=== PATIENT | female | born 1985 | race Caucasian/White ===

== ENCOUNTER 2018-06-27 07:08 | Day surgery (SDC) | payer MEDICAID, OTHER ==
[2018-06-26 16:46] VITALS: BMI 43.5
[~2018-06-27] VITALS: Ht 160 cm; Wt 114.2 kg
[2018-06-27] VITALS (15 sets, daily range): BP systolic 109–137; BP diastolic 56–77; PULSE 54–72; RESP 14–20; Ht 160 cm; Wt 114.2 kg
[2018-06-27] MEDS ORDERED: BUPIVACAINE 0.25% (MPF) 30 ML INJ ONE (09:13)
--- NOTE | 2018-06-27 09:29 | PREAC ---
Date/Time of Note Date/Time of Note DATE: 06/27/18 TIME: 09:28 Anesthesia Eval and Record Evaluation Time Pre-Procedure Interview DATE: 06/27/18 TIME: 09:28 Age 33 Sex female NPO: 8 hrs Preoperative diagnosis Cholelithiasis Planned procedure Lap Cholecystectomy Past Medical History Past Medical History: Includes GI: Morbid obesity Surgery & Anesthesia Issues No known issue Meds Anticoagulation: No Beta Hollie within 24 hr: No Reason Beta Hollie not given: Pt. not on B-Hollie No Active Prescriptions or Reported Meds Meds reviewed: Yes Allergies Coded Allergies: No Known Drug Allergies (Verified Allergy, Unknown, 06/27/18) Allergies Reviewed: Yes Labs/Studies Labs Reviewed: Reviewed by anesthesiologist test: Negative Pre-procedure Exam Last vitals Vital Signs Date Temp Pulse Resp B/P (MAP) Pulse Ox O2 O2 Flow FiO2 Time Delivery Rate 06/27/18 96.7 68 16 114/64 99 Room Air 08:12 (81) Airway: Adequate mouth opening, Adequate thyromental dist Mallampati: Mallampati II Teeth: Normal Lung: Normal Heart: Normal ASA Physical Status ASA physical status: 2 Emergency: None Planned Anesthetic General/MAC: ETT Planned Pain Management Parenteral pain med, Local by surgeon Pre-operative Attestations Prior to commencing anesthesia and surgery, the patient was re-evaluated, there was verification of: *The patient's identity *The results of appropriate recent lab work and preoperative vital signs *The above evaluation not changing prior to induction *Anesthetic plan, risk benefits, alternative and complications discussed with patient/family; questions answered; patient/family understands, accepts and wishes to proceed. NINA HUSAIN MD Jun 27, 2018 09:29
[2018-06-27] MEDS ORDERED: MIDAZOLAM 1 MG/ML 2 ML INJ ONE (09:32)
[2018-06-27] MEDS ORDERED: ROCURONIUM 50 MG INJ ONE (10:16)
[2018-06-27] MEDS ORDERED: GLYCOPYRROLATE 0.4 MG INJ ONE (10:16)
[2018-06-27] MEDS ORDERED: PROPOFOL 20 ML ONE (10:16)
[2018-06-27] MEDS ORDERED: NEOSTIGMINE 3 MG/3 ML SYRINGE ONE (10:16)
[2018-06-27] MEDS ORDERED: LIDOCAINE 2% (SDV) 5 ML INJ ONE (10:16)
[2018-06-27] MEDS ORDERED: CEFAZOLIN 1 GM INJ ONE (10:16)
[2018-06-27] MEDS ORDERED: ONDANSETRON 4 MG INJ ONE ×2 (10:17→10:31)
--- NOTE | 2018-06-27 10:24 | OPR ---
Date/Time of Note Date/Time of Note DATE: 06/27/18 TIME: 10:22 Operative Report Procedure Date: Jun 27, 2018 Preoperative Diagnosis symptomatic gallstones Postoperative Diagnosis same Operation/Procedure Performed laparoscopic cholecystectomy Surgeon see signature line Licensed Surveyor none Anesthesia Type: general Estimated Blood Loss: 0 - 10 ml's Transfusion none Specimen gallbladder Grafts/Implants none Complications none Pt Condition Post Procedure: stable Indications This is a 33-year-old female with some tender gallstones. She reports surgical excision of her gallbladder. Risks alternatives benefits and percent were discussed the patient. In particular she has slightly increased risk of infection bleeding and intra-abdominal organ injury, bladder injury due to her morbid obesity of BMI of 44.6. Careful discussion was made and all questions were answered. She expressed understanding and consents to the operation. Procedure Description Patient is taken to the OR and prepped and draped in usual sterile fashion. Samantha gical time was performed. IV antibiotics given. Infraumbilical transverse incision was made at the 15 blade. Dissection with cautery was carried down to the fascia. The fascia was grasped with Jana's and divided with curved Weinstein scissors. 0 Vicryl U stitch was placed into the fascia. Mcclain trocar was introduced. Pneumoperitoneum is established. Midepigastric 12 mm optical trochars placed under direct position. Right upper quadrant upper flank 5 mm optical trocar was placed under direct visualization. Upon initial inspection there are some adhesions to the gallbladder. This was taken down bluntly with graspers and [place] graspers. The gallbladder is retracted by the fundus in a lateral and cephalad direction. [place] graspers were used to dissect out and isolate the cystic duct and cystic artery. The critical view is established. The cystic duct is divided with 3 clips proximally clipped distal and the division was performed laparoscopic scissors. Cystic artery was divided in a similar fashion with 3 clips proximal to distal and the division was performed laparoscopic scissors. The gallbladder was taken of the gallbladder bed. Good hemostasis established. Minimal suction irrigation is used. The gallbladder is retrieved using Endo Catch bag. Ports removed under direct position. 0 Vicryl U stitch was tied down. Skin is closed using skin carlos eduardo. Therapeutic brown bcutaneous local anesthesia was injected at the incision site. Dry dressings were applied. Phil LEAL Jun 27, 2018 10:24
[2018-06-27] MEDS ORDERED: LABETALOL HCL 20MG INJ IV PRN (10:30)
[2018-06-27] MEDS ORDERED: hydrALAzine 20 MG INJ IV PRN (10:30)
[2018-06-27] MEDS ORDERED: ONDANSETRON 4 MG INJ IV PRN (10:30)
[2018-06-27] MEDS ORDERED: DIPHENHYDRAMINE 50 MG INJ IV PRN (10:30)
[2018-06-27] MEDS ORDERED: METOCLOPRAMIDE 10 MG INJ IV PRN (10:30)
[2018-06-27] MEDS ORDERED: HYDROCODONE/APAP (5/325) TAB PO ONE (10:30)
[2018-06-27] MEDS ORDERED: KETOROLAC 30 MG INJ IV PRN (10:30)
[2018-06-27] MEDS ORDERED: HYDROmorphONE 1 MG/5 ML IV SYRINGE IV PRN ×2 (10:30)
[2018-06-27] MEDS ORDERED: MEPERIDINE 25 MG INJ IV PRN (10:30)
--- NOTE | 2018-06-27 10:30 | PAC ---
Date/Time of Note Date/Time of Note DATE: 06/27/18 TIME: 10:28 Post-Anesthesia Notes Post-Anesthesia Note Last documented vital signs Vital Signs Date Temp Pulse Resp B/P (MAP) Pulse Ox O2 O2 Flow FiO2 Time Delivery Rate 06/27/18 98.1 10:27 06/27/18 68 16 114/64 99 Room Air 08:12 (81) Activity: WNL Respiratory function: WNL Cardiovascular function: WNL Mental status: Baseline Pain reasonably controlled: Yes Hydration appropriate: Yes Nausea/Vomiting absent: Yes Comments BP:145/68, pulse:78, spo2:100%, T:98,8 NINA HUSAIN MD Jun 27, 2018 10:30
[2018-06-27] MEDS: FENTAnyl 50 MCG/ML VIAL IV PRN ×2 (10:54→11:05)
== END 2018-06-27 12:04 | disposition home or self-care (01) ==
LOC: SDS 07:08
PROVIDERS: ATTEND Surgery
DX: K80.20 Calculus of gallbladder without cholecystitis without obstruction (principal)
CPT/HCPCS: 47562; J0690; J1170; J1200; J1885; J2250; J2405; J2710; J2765; J3010; Z7610; 88304

== ENCOUNTER 2018-09-23 09:22 | Emergency (ER) | payer OTHER ==
[~2018-09-23] VITALS: Ht 165.1 cm; Wt 94.0 kg
[2018-09-23 09:25] VITALS: BP 147/78; PULSE 73; RESP 18; Ht 165.1 cm; Wt 94.0 kg
[2018-09-23] MEDS ORDERED: BENZ-6 PO (09:53)
[2018-09-23] MEDS ORDERED: NAPR-985 PO (09:53)
[2018-09-23] MEDS ORDERED: PSEU-79 PO (09:53)
[2018-09-23] MEDS ORDERED: PROM6.2515 PO (09:53)
--- NOTE | 2018-09-23 10:38 | ERD ---
ER Documentation Chief Complaint Chief Complaint pt bib self with c/o aches and pains, fever for a few days HPI 33-year-old female presenting with body aches sore throat ear pain and tactile fevers for the last few days. She has not taken medications today. She has a dry cough. Denies other medical problems. NKDA. Surgical history and D&C with cholecystectomy. Social history denies ROS All systems reviewed and are negative except as per history of present illness. Medications Home Meds Active Scripts Promethazine Hcl* (Promethazine Hcl* Syrup) 6.25 Mg/5 Ml Syrup, 6.25 MG PO Q6H PRN for COUGH, #100 ML Prov:LEIDY MACIAS PA-C 09/23/18 Benzonatate* (Tessalon Perle*) 100 Mg Capsule, 100 MG PO Q8H PRN for COUGH, #30 CAP Prov:LEIDY MACIAS PA-C 09/23/18 Naproxen* (Naprosyn*) 500 Mg Tablet, 500 MG PO BID PRN for PAIN AND/OR INFLAMMATION, #30 TAB Prov:LEIDY MACIAS PA-C 09/23/18 Pseudoephedrine Hcl* (Suphedrin*) 30 Mg Tablet, 30 MG PO Q6 PRN for CONGESTION, #30 TAB Prov:LEIDY MACIAS PA-C 09/23/18 Allergies Allergies: Coded Allergies: No Known Drug Allergies (Verified Allergy, Unknown, 06/27/18) PMhx/Soc Medical and Surgical Hx: pt denies Medical Hx History of Surgery: Yes ( X4, D AND C, CHOLECYSTECTOMY) Anesthesia Reaction: No Hx Neurological Disorder: No Hx Respiratory Disorders: No Hx Cardiac Disorders: No Hx Psychiatric Problems: No Hx Miscellaneous Medical Probl: Yes (GALLSTONES) Hx Alcohol Use: No Hx Substance Use: No Hx Tobacco Use: No Smoking Status: Never smoker FmHx Family History: diabetes; No coronary disease, No other Physical Exam Vitals Vital Signs Date Temp Pulse Resp B/P (MAP) Pulse Ox O2 O2 Flow FiO2 Time Delivery Rate 09/23/18 97.9 73 18 147/78 99 09:25 (101) Physical Exam GENERAL: The patient is well-appearing, well-nourished, in no acute distress HEENT: Atraumatic. Conjunctivae are pink. Pupils equal, round, and reactive to light. There is no scleral icterus. Tympanic membranes clear bilaterally. Oropharynx clear. No nystagmus or photophobia. NECK: C-spine is soft and supple. There is no meningismus. There is no cervical lymphadenopathy. CHEST: Clear to auscultation bilaterally. There are no rales, wheezes or rhonchi. HEART: Regular rate and rhythm. No murmurs, clicks, rubs or gallops. Procedures/MDM DM: 33-year-old female presenting with URI symptoms. I have low suspicion for bacterial HEENT infection. I have low suspicion for meningitis or sepsis. I have low suspicion for pneumonia. Patient is discharged with strict ER precautions and told to follow-up with primary care within 1-2 days for close evaluation. Patient is told if symptoms change or worsen to return immediately to the ER. All questions answered at discharge Departure Diagnosis: Primary Impression: Upper respiratory infection Condition: Stable Patient Instructions: Uri, Viral, No Abx (Adult) Referrals: [facility] YOU HAVE RECEIVED A MEDICAL SCREENING EXAM AND THE RESULTS INDICATE THAT YOU DO NOT HAVE A CONDITION THAT REQUIRES URGENT TREATMENT IN THE EMERGENCY DEPARTMENT. FURTHER EVALUATION AND TREATMENT OF YOUR CONDITION CAN WAIT UNTIL YOU ARE SEEN IN YOUR DOCTORS OFFICE WITHIN THE NEXT 1-2 DAYS. IT IS YOUR RESPONSIBILITY TO MAKE AN APPOINTMENT FOR FOLOW-UP CARE. IF YOU HAVE A PRIMARY DOCTOR --you should call your primary doctor and schedule an appointment IF YOU DO NOT HAVE A PRIMARY DOCTOR YOU CAN CALL OUR PHYSICIAN REFERRAL HOTLINE AT IF YOU CAN NOT AFFORD TO SEE A PHYSICIAN YOU CAN CHOSE FROM THE FOLLOWING [facility] [address] [facility] [address] [facility] [place] [address] [facility] [address] [facility] [address] [facility]. [facility]. [address] [place] Additional Instructions: FOLLOW UP WITH YOUR PRIMARY CARE PHYSICIAN TOMORROW.Return to this facility if you are not improving as expected. LIEDY MACIAS PA-C Sep 23, 2018 10:38
== END 2018-09-23 10:26 | disposition home or self-care (01) ==
LOC: FTE 09:22
DX: J06.9 Acute upper respiratory infection, unspecified (principal)
CPT/HCPCS: 99283

== ENCOUNTER 2018-10-02 06:42 | Day surgery (SDC) | payer OTHER ==
[2018-10-02] VITALS (13 sets, daily range): BP systolic 102–129; BP diastolic 63–78; PULSE 74–82; RESP 14–18; Ht 160 cm; Wt 113.1 kg
[~2018-10-02] VITALS: Ht 160 cm; Wt 113.1 kg
[~2018-10-02 06:42] MED LIST: BENZ-6 PO; NAPR-985 PO; PROM6.2515 PO; PSEU-79 PO
[2018-10-02] MEDS ORDERED: SUCCINYLCHOLINE CHLORIDE 100 MG/5 ML SYG IV ONE (07:00)
[2018-10-02] MEDS ORDERED: CEFAZOLIN 1 GM INJ ONE (07:00)
[2018-10-02] MEDS ORDERED: DESFLURANE 15 MIN ONE (07:00)
[2018-10-02] MEDS ORDERED: ROCURONIUM 50 MG INJ ONE (09:12)
[2018-10-02] MEDS ORDERED: PROPOFOL 100 ML ONE (09:12)
[2018-10-02] MEDS ORDERED: MIDAZOLAM 1 MG/ML 2 ML INJ ONE (09:12)
[2018-10-02] MEDS ORDERED: LIDOCAINE 100 MG SYRINGE ONE (09:12)
[2018-10-02] MEDS ORDERED: FENTAnyl 50 MCG/ML VIAL ONE ×2 (09:12→09:45)
[2018-10-02] MEDS ORDERED: ONDANSETRON 4 MG INJ ONE (09:13)
[2018-10-02] MEDS ORDERED: DEXAMETHASONE 4 MG/ML 5 ML INJ ONE (09:13)
[2018-10-02] MEDS ORDERED: SUGAMMADEX SODIUM 200 MG/2 ML VIAL IV ONE (09:13)
--- NOTE | 2018-10-02 09:20 | PREAC ---
Date/Time of Note Date/Time of Note DATE: 10/02/18 TIME: : Anesthesia Eval and Record Evaluation Time Pre-Procedure Interview DATE: 10/02/18 TIME: : Age 33 Sex female NPO: 8 hrs Preoperative diagnosis abdominal mass x2 Planned procedure ABDOMINAL MASS X2 RESECTION Past Medical History Past Medical History: Includes GI: Morbid obesity Surgery & Anesthesia Issues No known issue Meds Anticoagulation: No Beta Hollie within 24 hr: No Reason Beta Hollie not given: Pt. not on B-Hollie Active Scripts Naproxen* (Naprosyn*) 500 Mg Tablet, 500 MG PO BID PRN for PAIN AND/OR INFLAMMATION, #30 TAB Prov:LEIDY MACIAS PA-C 09/23/18 Discontinued Scripts Promethazine Hcl* (Promethazine Hcl* Syrup) 6.25 Mg/5 Ml Syrup, 6.25 MG PO Q6H PRN for COUGH, #100 ML Prov:LEIDY MACIAS PA-C 09/23/18 Benzonatate* (Tessalon Perle*) 100 Mg Capsule, 100 MG PO Q8H PRN for COUGH, #30 CAP Prov:LEIDY MACIAS PA-C 09/23/18 Pseudoephedrine Hcl* (Suphedrin*) 30 Mg Tablet, 30 MG PO Q6 PRN for CONGESTION, #30 TAB Prov:LEIDY MACIAS PA-C 09/23/18 Meds reviewed: Yes Allergies Coded Allergies: No Known Drug Allergies (Verified Allergy, Unknown, 06/27/18) Allergies Reviewed: Yes Labs/Studies Labs Reviewed: Reviewed by anesthesiologist Result Diagram: 10/02/18 0800 10/02/18 0800 Laboratory Tests 10/02/18 08:00 test: Negative Pre-procedure Exam Last vitals Vital Signs Date Temp Pulse Resp B/P (MAP) Pulse Ox O2 O2 Flow FiO2 Time Delivery Rate 10/02/18 97.5 80 16 106/63 99 Room Air 07:47 (77) Airway: Adequate mouth opening Mallampati: Mallampati II Teeth: Normal Lung: Normal Heart: Normal ASA Physical Status ASA physical status: 2 Emergency: None Planned Anesthetic General/MAC: ETT Pre-operative Attestations Prior to commencing anesthesia and surgery, the patient was re-evaluated, there was verification of: *The patient's identity *The results of appropriate recent lab work and preoperative vital signs *The above evaluation not changing prior to induction *Anesthetic plan, risk benefits, alternative and complications discussed with patient/family; questions answered; patient/family understands, accepts and wish es to proceed. RUBÉN BREWER October 02, 2018 09:20
[2018-10-02] MEDS ORDERED: LIDOCAINE 2% (MDV) 20 ML INJ ONE (09:45)
[2018-10-02] MEDS ORDERED: BUPIVACAINE 0.5% (SDV) 30 ML INJ ONE (09:45)
[2018-10-02] MEDS ORDERED: TRIAMCINOLONE ACET 40 MG/ML INJ ONE (09:45)
[2018-10-02] MEDS ORDERED: METOCLOPRAMIDE 10 MG INJ IV PRN (10:00)
[2018-10-02] MEDS ORDERED: MEPERIDINE 25 MG INJ IV PRN (10:00)
[2018-10-02] MEDS ORDERED: LABETALOL HCL 20MG INJ IV PRN (10:00)
[2018-10-02] MEDS ORDERED: FENTAnyl 50 MCG/ML VIAL IV PRN ×2 (10:00)
[2018-10-02] MEDS ORDERED: HYDROmorphONE 1 MG/5 ML IV SYRINGE IV PRN ×2 (10:00)
[2018-10-02] MEDS ORDERED: ONDANSETRON 4 MG INJ IV PRN (10:00)
[2018-10-02] MEDS ORDERED: hydrALAzine 20 MG INJ IV PRN (10:00)
--- NOTE | 2018-10-02 10:13 | OPR ---
Date/Time of Note Date/Time of Note DATE: 10/02/18 TIME: 10:10 Operative Report Procedure Date: October 02, 2018 Preoperative Diagnosis abdominal mass x 2 Postoperative Diagnosis same Operation/Procedure Performed 1. excision of superior abdominal mass 6 cm mass 6 cm incision 2. localized adjacent tissue transfer with the use of skin flaps 12 sq cm defect of upper abdomen 3. excision of infraumbilical mass 6 cm mass 6 cm incision 4. localized adjacent tissue transfer with the use of skin flaps 12 sq cm defect of lower abdomen 5. therapeutic injection of subcutaneous local anesthesia 6. therapeutic injection of kenalog Surgeon see signature line Line Locator none Anesthesia Type: general Estimated Blood Loss: 0 - 10 ml's Transfusion none Specimen abdominal mass x 2 Grafts/Implants none Complications none Pt Condition Post Procedure: stable Indications This is a 33-year-old female with 2 abdominal masses. She required surgical excision. Risks alternatives benefits of percent were discussed the patient. Patient expressed understanding and consents to the operation. Procedure Description Patient is taken to the OR prepped and draped in usual sterile fashion. Surgical timeout was performed. IV antibiotics given. Elliptical incision was made over the upper abdominal mass with a 15 blade. Dissection with cautery is good onto the mass and the mass was circumferentially excised. Due to tissue defect localization just transfer with use of skin flaps performed. Multilayer closed with interrupted 3-0 Vicryl in interrupted 2-0 nylon. Therapeutic contains local anesthesia injected at the incision site. Kenalog was also injected. Attention was then paid to the infraumbilical mass. Elliptical incision with a 15 blade around the mass. Dissection with cautery was carried onto the mass and the mass was circumferentially excised. Good hemostasis status. Due to tissue defect localization to stress of these of skin flaps was performed. Multilayer closure with interrupted 3-0 Vicryl interrupted 2-0 nylon. Therapeutic contains local anesthesia was injected at the incision site. Kenalog was also injected along the incision site. Dry dressings were applied to both surgical sites. Phil LEAL October 02, 2018 10:13
--- NOTE | 2018-10-02 10:23 | PAC ---
Date/Time of Note Date/Time of Note DATE: 10/02/18 TIME: 10:22 Post-Anesthesia Notes Post-Anesthesia Note Last documented vital signs Vital Signs Date Temp Pulse Resp B/P (MAP) Pulse Ox O2 O2 Flow FiO2 Time Delivery Rate 10/02/18 97.5 80 16 106/63 99 Room Air 07:47 (77) Activity: WNL Respiratory function: WNL Cardiovascular function: WNL Mental status: Baseline Pain reasonably controlled: Yes Hydration appropriate: Yes Nausea/Vomiting absent: Yes RUBÉN BREWER October 02, 2018 10:23
[2018-10-02] MEDS ORDERED: HYDROCODONE/APAP (5/325) TAB PO ONE (10:30)
== END 2018-10-02 11:56 | disposition home or self-care (01) ==
LOC: SDS 06:42
PROVIDERS: ATTEND Surgery
DX: L90.5 Scar conditions and fibrosis of skin (principal)
CPT/HCPCS: 14001; 80053; 85025; 85610; 85730; 88307; J0690; J1100; J1170; J2001; J2250; J2405; J3010; Z7512; Z7610